=== PATIENT | male | born 1975 | race Caucasian/White ===

== ENCOUNTER 2024-04-29 19:41 | Emergency (ER) | payer SELFPAY ==
[~2024-04-29] VITALS: Ht 170.2 cm; Wt 62.0 kg
[2024-04-29 19:48] VITALS: O2SAT 97
[2024-04-29] MEDS ORDERED: LORAZEPAM 1MG TABLET PO ONE (20:15)
[2024-04-29] MEDS: LORAZEPAM 1MG TABLET PO NR (20:45)
[2024-04-29] MEDS: SODIUM CHLORIDE 0.9% IV ONE (21:15)
[2024-04-30 02:45] VITALS: BP 115/74; PULSE 63; RESP 16; TEMP 97.9
== END 2024-04-30 05:05 | disposition home or self-care (01) ==
LOC: ER 19:47
DX: F19.90 Other psychoactive substance use, unspecified, uncomplicated (principal); F15.90 Other stimulant use, unspecified, uncomplicated; Z98.890 Other specified postprocedural states
CPT/HCPCS: 99283; 96360; 96361; J7030